=== PATIENT | female | born 1960 | race American Indian/Alaskan Native ===

== ENCOUNTER 2018-05-27 14:17 | Emergency (ER) | payer OTHER ==
--- NOTE | 2018-05-27 15:07 | ED PDOC ---
Arrival/HPI - General Chief Complaint: Allergic Reaction Time Seen by Provider: 05/27/18 14:22 Historian: Patient - History of Present Illness Narrative History of Present Illness (Text): 05/27/18 15:07 Patient is a 57 year old female whose past medical history includes Diabetes Mellitus, who presents to the Emergency Department by EMS for allergic reaction. Of note patient is present with step sister. Patient reports that she was seeing her autocad designer for allergy testing. After her visit she came in close proximity to an animal(patient unsure of species) and started experiencing shortness of breath due to an allergic reaction. EMS was called, who administered an EpiPen and Benadryl on site approximately 1 hour ago. She states that her breathing has improved but notes having bilateral hand tremors and pruritus. Patient states that the allergy test found that she was allergic to dustmite, certain trees, and dog dander. Of note her initial visit to the Non Garment Sewing Machine Operator was due to facial puffiness, and nasal congestion. Patient denies fevers, chills, cough, chest pain, abdominal pain, nausea, vomiting, diarrhea, neck/back pain, urinary/bowel changes, headache, dizziness, or any other complaint. PMD: Time/Duration: 1 hour Symptom Onset: Sudden Symptom Course: Improving Context: Walking Past Medical History - Provider Review Nursing Documentation Reviewed: Yes - Infectious Disease Hx of Infectious Diseases: None - Endocrine/Metabolic Hx Diabetes Mellitus Type 2: Yes - Gastrointestinal Hx Gastrointestinal Disorders: Yes Other/Comment: Gastric Sleeve - Psychiatric Hx Substance Use: No - Surgical History Hx Gastric Bypass Surgery: Yes (sleeve) Family/Social History - Physician Review Nursing Documentation Reviewed: Yes Family/Social History: No Known Family HX Smoking Status: Never Smoked Hx Alcohol Use: No Hx Substance Use: No Allergies/Home Meds Allergies/Adverse Reactions: Allergies No Known Allergies Allergy (Verified 05/27/18 14:39) Home Medications: Home Meds Medication Instructions Recorded Confirmed Dapagliflozin Propanediol [Farxiga] 5 mg PO DAILY 05/27/18 05/27/18 Dulaglutide [Trulicity] 1 tab PO QWK 05/27/18 05/27/18 GlipiZIDE [Glucotrol] 10 mg PO DAILY 05/27/18 05/27/18 Review of Systems - Physician Review All systems were reviewed & negative as marked: Yes - Review of Systems Constitutional: absent: Fevers Cardiovascular: absent: Chest Pain Physical Exam - Physical Exam Narrative Physical Exam (Text): 05/27/18 15:06 Constitutional: No acute distress. Head: Normocephalic. Atraumatic. Eyes: PERRL. ENT: Moist mucous membranes. Neck: Supple. Cardiovascular: Regular rate. Chest: No tenderness. Respiratory: Clear to auscultation bilaterally. GI: Soft. Nontender. Nondistended. Back: No CVA tenderness. Musculoskeletal: No tenderness or swelling of extremities. Skin: No rash. Neurologic: Alert, no focal deficit. (+) Fine bilateral hand tremors. Vital Signs Reviewed: Yes Vital Signs Temp Pulse Resp BP Pulse Ox 05/27/18 18:14 97.7 F 90 18 140/80 99 05/27/18 18:13 97.7 F 90 18 140/80 99 05/27/18 16:00 90 17 158/87 H 97 05/27/18 14:36 97.9 F 98 H 20 176/95 H 100 05/27/18 14:32 97.2 F L 100 H 22 176/95 H 99 Temperature: Afebrile Blood Pressure: Hypertensive Pulse: Tachycardic Respiratory Rate: Normal Appearance: Positive for: Well-Appearing Mental Status: Positive for: Alert and Oriented X 3 Medical Decision Making ED Course and Treatment: 05/27/18 15:06 Impression: Patient is a 57 year old female who was brought to the emergency room by EMS for an allergic reaction. Differential Diagnosis included but are not limited to: Allergic reaction Plan: --Labs --Blood work --Pepcid --Solu-Medrol -- Reassess and disposition Progress Notes: Patient observed in ED for 4 hours. She states she feels that everything is resolved. Discharged home with prescription for epi pen. - Lab Interpretations Lab Results: 05/27/18 14:40 05/27/18 14:40 Lab Results 05/27/18 14:40: Sodium 143, Potassium 3.4 L, Chloride 103, Carbon Dioxide 24, Anion Gap 19, BUN 12, Creatinine 0.6 L, Est GFR ( Amer) > 60, Est GFR ( Non-Af Amer) > 60, Random Glucose 150 H, Calcium 9.1, Total Bilirubin 0.7, AST 21, ALT 14, Alkaline Phosphatase 80, Total Protein 8.4 H, Albumin 4.3, Globulin 4.1, Albumin/Globulin Ratio 1.1 05/27/18 14:40: WBC 13.5 H, RBC 5.02, Hgb 13.2, Hct 38.8, MCV 77.3 L, MCH 26.3, MCHC 34.0, RDW 15.2 H, Plt Count 362, MPV 9.9, Gran % 53.2, Lymph % (Auto) 38.4 H, Leon % (Auto) 7.0 H, Eos % (Auto) 1.2 L, Baso % (Auto) 0.2, Gran # 7.18 H, Lymph # (Auto) 5.2 H, Leon # (Auto) 0.9 H, Eos # (Auto) 0.2, Baso # (Auto) 0.03 I have reviewed the lab results: Yes - Medication Orders Current Medication Orders: Discontinued Medications Famotidine (Pepcid) 20 mg IVP STAT STA Stop: 05/27/18 15:04 Last Admin: 05/27/18 15:08 Dose: 20 mg IVP Administration Document 05/27/18 15:08 [facility] [place] (Rec: 05/27/18 15:08 [facility] [place] [id number]) Charges for Administration # of IVP Administrations 1 Methylprednisolone (Solu-Medrol) 125 mg IVP STAT STA Stop: 05/27/18 15:04 Last Admin: 05/27/18 15:08 Dose: 125 mg IVP Administration Document 05/27/18 15:08 [facility] [place] (Rec: 05/27/18 15:08 [facility] [place] [id number]) Charges for Administration # of IVP Administrations 1 - Scribe Statement The provider has reviewed the documentation as recorded by the Scribe Dakotah Reinoso Provider Scribe Attestation: All medical record entries made by the Scribe were at my direction and personally dictated by me. I have reviewed the chart and agree that the record accurately reflects my personal performance of the history, physical exam, medical decision making, and the department course for this patient. I have also personally directed, reviewed, and agree with the discharge instructions and disposition. Disposition/Present on Arrival - Present on Arrival Any Indicators Present on Arrival: No History of DVT/PE: No History of Uncontrolled Diabetes: No Urinary Catheter: No History of Decub. Ulcer: No History Surgical Site Infection Following: None - Disposition Have Diagnosis and Disposition been Completed?: Yes Diagnosis: Allergic reaction Disposition: HOME/ ROUTINE Disposition Time: 18:10 Patient Plan: Discharge Condition: STABLE Discharge Instructions (ExitCare): Anaphylaxis (DC) Prescriptions: Epinephrine [Epipen] 0.3 mg IJ ONCE PRN #1 auto.injct PRN Reason: Anaphylaxis Referrals: Dmitry Peguero DO [Staff Provider] - Follow up with primary Forms: [employer] ([place])
[2018-05-27 15:22] LABS: ALB/GLOB RATIO 1.1 (1.1-1.8); ALBUMIN 4.3 g/dL (3.0-4.8); ALT/SGPT 14 U/L (7-56); AST/SGOT 21 U/L (14-36); BLOOD UREA NITROGEN 12 mg/dL (7-21); CALCIUM 9.1 mg/dL (8.4-10.5); GFR AFRICAN-AMERICAN > 60; GFR NON-AFRICAN AMERICAN > 60
[2018-05-27 15:24] LABS: BASO # 0.03 K/mm3 (0.0-2.0); BASO % 0.2 % (0.0-3.0); EOS # 0.2 (0.0-0.7); EOS % 1.2 % (1.5-5.0); GRAN # 7.18 (1.4-6.5); GRAN % 53.2 % (50.0-68.0); HEMOGLOBIN 13.2 g/dL (12.0-16.0); LYMPH # 5.2 (1.2-3.4); LYMPH % 38.4 % (22.0-35.0); MEAN CELL VOLUME 77.3 fl (80.0-105.0); MEAN CORPUSCULAR HEMOGLOBIN 26.3 pg (25.0-35.0); MEAN PLATELET VOLUME 9.9 fl (7.0-11.0); MONO # 0.9 (0.1-0.6); RBC 5.02 10^6/uL (3.5-6.1); RED CELL DISTRIBUTION WIDTH 15.2 % (11.5-14.5); WHITE BLOOD COUNT 13.5 10^3/ul (4.5-11.0)
[2018-05-27 17:08] VITALS: PULSE 90
[2018-05-27 18:14] VITALS: BP 140/80; RESP 18; TEMP 97.7; O2SAT 99
== END 2018-05-27 18:14 | disposition home or self-care (01) ==
LOC: ED 14:17
DX: T78.40XA Allergy, unspecified, initial encounter (principal); E11.9 Type 2 diabetes mellitus without complications
CPT/HCPCS: 80053; 85025; 96374; 96375; 99284; J2930